=== PATIENT | female | born 2000 | race Caucasian/White ===

== ENCOUNTER 2019-02-21 04:11 | Emergency (ER) | payer OTHER ==
[~2019-02-21] VITALS: Ht 154.9 cm; Wt 85.7 kg
[2019-02-21] MEDS ORDERED: BENADRYL25 MG PO (05:24)
[2019-02-21] MEDS ORDERED: IBUP600 PO (05:24)
[2019-02-21] MEDS ORDERED: Prednisone20 MG PO (06:12)
== END 2019-02-21 06:29 | disposition home or self-care (01) ==
LOC: ER 04:11
DX: M54.5 Low back pain (principal); G89.29 Other chronic pain; Z88.2 Allergy status to sulfonamides; Z79.899 Other long term (current) drug therapy; F17.200 Nicotine dependence, unspecified, uncomplicated
CPT/HCPCS: 72100; 96372; 99283-25; J1885

== ENCOUNTER → 2019-04-23 | Outpatient (CLI) | payer OTHER ==
[~2019-04-23] MED LIST: BENADRYL25 MG PO; IBUP600 PO; Prednisone20 MG PO
== END ==
LOC: LAB EV 15:51 → LAB SHORT 15:51
DX: J02.9 Acute pharyngitis, unspecified (principal)
CPT/HCPCS: 87077; 87081; 87185